=== PATIENT | female | born 1950 | race Caucasian/White ===

== ENCOUNTER 2019-02-22 12:13 | Day surgery (SDC) | payer MEDICARE ==
[~2019-02-22] VITALS: Ht 165.1 cm; Wt 55.7 kg
[~2019-02-22 12:13] MED LIST: AMLO5 PO; Benicar40 MG PO; FURO40 PO; K-Dur20 MEQ PO; LO-DOSE ASPIRIN81 MG PO; METO50ER PO; SIMV40 PO
--- NOTE | 2019-02-22 17:11 | NUR ---
02/22/19 1711 Amairani Brown TO CAR W/SBA X1 NAE WELL. DC INSTRUCTIONS GIVEN AND NAE WATER PRIOR TO DC HOME
== END 2019-02-22 16:45 | disposition home or self-care (01) ==
LOC: ORSCSDS 12:13
PROVIDERS: Student in an Organized Health Care Education/Training Program
PROC: 0D758ZZ Dilation of Esophagus, Via Natural or Artificial Opening Endoscopic (ICD-10-PCS; principal; 2019-02-22 13:45)
PROC: 0DB58ZX Excision of Esophagus, Via Natural or Artificial Opening Endoscopic, Diagnostic (ICD-10-PCS; principal; 2019-02-22 13:45)
PROC: 0DB68ZX Excision of Stomach, Via Natural or Artificial Opening Endoscopic, Diagnostic (ICD-10-PCS; principal; 2019-02-22 13:45)
PROC: 0DB98ZX Excision of Duodenum, Via Natural or Artificial Opening Endoscopic, Diagnostic (ICD-10-PCS; principal; 2019-02-22 13:45)
DX: R13.10 Dysphagia, unspecified (principal); K29.80 Duodenitis without bleeding; Q39.4 Esophageal web; K29.70 Gastritis, unspecified, without bleeding; I10 Essential (primary) hypertension; F17.210 Nicotine dependence, cigarettes, uncomplicated; E78.00 Pure hypercholesterolemia, unspecified; Z79.82 Long term (current) use of aspirin; Z79.899 Other long term (current) drug therapy
CPT/HCPCS: 88305; 88342; C1726; J2704; J7120

== ENCOUNTER 2019-04-12 06:07 | Inpatient (IN) | payer MEDICARE ==
[~2019-04-12] VITALS: Ht 165.1 cm; Wt 53.4 kg
[2019-04-12 06:48] LABS: BASOPHILS ABSOLUTE AUTO 0.03 K/mm3 (0.00-0.23); BASOPHILS PERCENT AUTO 0 % (0-2); EOSINOPHILS ABSOLUTE AUTO 0.09 K/mm3 (0.00-0.68); EOSINOPHILS PERCENT AUTO 1 % (0-6); Hematocrit 41.3 % (33.0-51.0); Hemoglobin 13.7 g/dL (11.5-16.0); IMMATURE GRAN ABSOLUTE AUTO 0.02 K/mm3 (0.00-0.10); IMMATURE GRAN PERCENT AUTO 0 % (0-1); LYMPHOCYTES ABSOLUTE AUTO 1.14 K/mm3 (0.84-5.20); LYMPHOCYTES PERCENT AUTO 17 % (21-46); MONOCYTES ABSOLUTE AUTO 0.57 K/mm3 (0.16-1.47); MONOCYTES PERCENT AUTO 8 % (4-13); Mean Corpuscular HGB 31.9 pg (26.0-34.0); Mean Corpuscular HGB Conc 33.2 g/dL (31.5-36.5); Mean Corpuscular Volume 96 fL (80-100); Mean Platelet Volume 10.1 fL (9.1-12.4); NEUTROPHILS ABSOLUTE AUTO 5.02 K/mm3 (1.96-9.15); NEUTROPHILS PERCENT AUTO 73 % (41-73); Platelet Count 224 K/mm3 (150-400); RDW Coefficient Variation 16.6 % (11.7-14.2); RDW Standard Deviation 58.7 fL (35.1-46.3); White Blood Cell Count 6.87 K/mm3 (4.00-11.30)
[2019-04-12] MEDS ORDERED: SPIR25 PO (06:48)
[2019-04-12 07:07] LABS: Alanine Aminotransfer (ALT/SGP 14 U/L (12-78); Albumin, Blood 3.3 g/dL (3.4-5.0); Albumin/Globulin Ratio 0.9 (0.8-1.8); Alk Phos 75 U/L (50-136); Anion Gap 8 mmol/L (6-16); Aspartate Aminotrans (AST/SGOT 19 U/L (12-37); Bilirubin, Total 0.7 mg/dL (0.1-1.0); Blood Urea Nitrogen 7 mg/dL (8-24); Bun/Creatinine Ratio 10.5 (12.0-20.0); CO2, Blood 26 mmol/L (21-32); Calcium, Blood 8.8 mg/dL (8.5-10.1); Chloride, Blood 107 mmol/L (98-108); Creatinine, Blood 0.66 mg/dL (0.40-1.00); Globulin, Blood 3.5 g/dL (2.2-4.0); Glomerular Filtration Rate >60 (60-); Glucose, Blood 107 mg/dL (70-99); Potassium, Blood 3.3 mmol/L (3.5-5.5); Sodium, Blood 141 mmol/L (136-145); Total Protein, Blood 6.8 g/dL (6.4-8.2); Troponin I 0.041 ng/mL (0.000-0.040)
[2019-04-12] MEDS ORDERED: XARELTO20 MG PO (11:46)
[2019-04-12 12:09] LABS: International Normalized Ratio 0.98; Prothrombin Time Results 10.4 Sec (9.7-11.5)
--- NOTE | 2019-04-12 18:41 | NUR ---
PT SETTLED IN ROOM, FAMILY HAS CONTINUED AT BEDSIDE SINCE ARRIVAL. HEPARIN CONTINUES TO RUN AT 13 U/KG/HR, 14 ML/HR. PT ABLE TO GET UP INDEPENDENTLY TO BATHROOM WITH SBA. DR ORDERED A CT SCAN OF CHEST FOR LUNG MASS, PT AND FAMILY ARE UNAWARE OF THE REASONING FOR THE CT. WILL PASS THAT INFORMATION IN REPORT AND LET DR EXPLAIN AFTER TEST COMPLETE. CT CONTACTED BY THIS RN, CONTRAST WILL BE SENT TO THE UNIT AND SCAN WILL BE DONE AROUND 0600. WILL CONTINUE TO MONITOR AND GIVE REPORT TO NOC RN.
--- NOTE | 2019-04-12 21:22 | NUR ---
CARE ASSUMED/ TROPONIN/ DR. BRUSH COMMUNICATION REPORT RECEIVED, CARE ASSUMED FROM SADI, RN AT 1900. PT UPDATED ON PLAN OF CARE FOR SHIFT AND AGREEABLE. HEPARIN GTT INFUSING. NOTIFIED BY LAB OF CRITICAAL TROPONIN. VSS, DENIES PAIN, TELEMETRY UNCHANGED. SPOKE WITH DR. BRUSH REGARDING TROPONIN. CONFIRMED DISCONTINUATION OF HEPARIN. HEPARIN STOPPED. CONFIRMED PLAN FOR CT WITH ORAL CONTRAST AT 0600 AND ANGIOGRAM MID AFTERNOON TOMORROW. DR. BRUSH REQUESTING STAT READ ON CT RESULTS AFTER COMPLETED. SPOKE WITH SHAHANA IN RADIOLOGY WHO STATES HE WILL HAVE IT SENT TO [facility] FOR READING AFTER COMPLETION.
[2019-04-13 03:55] LABS: BASOPHILS ABSOLUTE AUTO 0.03 K/mm3 (0.00-0.23); BASOPHILS PERCENT AUTO 1 % (0-2); EOSINOPHILS ABSOLUTE AUTO 0.06 K/mm3 (0.00-0.68); EOSINOPHILS PERCENT AUTO 1 % (0-6); Hematocrit 36.6 % (33.0-51.0); Hemoglobin 12.4 g/dL (11.5-16.0); IMMATURE GRAN ABSOLUTE AUTO 0.01 K/mm3 (0.00-0.10); IMMATURE GRAN PERCENT AUTO 0 % (0-1); LYMPHOCYTES PERCENT AUTO 21 % (21-46); MONOCYTES ABSOLUTE AUTO 0.54 K/mm3 (0.16-1.47); MONOCYTES PERCENT AUTO 10 % (4-13); Mean Corpuscular HGB 32.7 pg (26.0-34.0); Mean Corpuscular HGB Conc 33.9 g/dL (31.5-36.5); Mean Corpuscular Volume 97 fL (80-100); Mean Platelet Volume 10.5 fL (9.1-12.4); NEUTROPHILS ABSOLUTE AUTO 3.84 K/mm3 (1.96-9.15); NEUTROPHILS PERCENT AUTO 68 % (41-73); Platelet Count 179 K/mm3 (150-400); RDW Coefficient Variation 16.5 % (11.7-14.2); RDW Standard Deviation 58.4 fL (35.1-46.3); Red Blood Cell Count 3.79 M/mm3 (3.80-5.20); White Blood Cell Count 5.68 K/mm3 (4.00-11.30)
[2019-04-13 04:19] LABS: Alanine Aminotransfer (ALT/SGP 16 U/L (12-78); Albumin, Blood 2.8 g/dL (3.4-5.0); Alk Phos 60 U/L (50-136); Anion Gap 4 mmol/L (6-16); Aspartate Aminotrans (AST/SGOT 34 U/L (12-37); Bilirubin, Total 0.7 mg/dL (0.1-1.0); Blood Urea Nitrogen 8 mg/dL (8-24); Bun/Creatinine Ratio 10.9 (12.0-20.0); CO2, Blood 28 mmol/L (21-32); Calcium, Blood 8.5 mg/dL (8.5-10.1); Chloride, Blood 108 mmol/L (98-108); Creatinine, Blood 0.73 mg/dL (0.40-1.00); Free Thyroxine 1.34 ng/dL (0.70-1.60); Globulin, Blood 2.8 g/dL (2.2-4.0); Glomerular Filtration Rate >60 (60-); Glucose, Blood 83 mg/dL (70-99); Magnesium, Blood 2.1 mg/dL (1.6-2.4); Potassium, Blood 3.2 mmol/L (3.5-5.5); Sodium, Blood 140 mmol/L (136-145); Total Protein, Blood 5.6 g/dL (6.4-8.2)
--- NOTE | 2019-04-13 06:49 | NUR ---
SUMMARY VITALS STABLE THROUGHOUT NIGHT. ASSESSMENTS UNCHANGED. PT CONTINUES TO DENY CHEST PAIN. PT TO CT SCAN THIS MORNING. SPOKE WITH CARLOS IN RADIOLOGY WHO EXPLAINS IN HOUSE RADIOLOGIST WILL BE IN AT 0730 TO READ RESULTS. PT HAS CALLED APPROPRIATELY FOR NEEDS AND CONTINUED TO BE INDEPENDENT IN ROOM.
--- NOTE | 2019-04-13 12:38 | NUR ---
Advance Directive education/spiritual care visit conducted. Upon receiving an advance directive and spiritual care referral, I visited patient. Her two sons were bedside. Patient has not learned the outcome of her CT scan and is waiting for an angiogram (according to patient), when I visit. I ask patient her level of interest in an advance directive. Patient expresses a need in that area. I go over the sections of the advance directive booklet, with booklet in hand. I discuss the importance and the process and leave booklet with patient to complete. I also give room in the conversation to discuss emotional and spiritual needs and no movement with patient or sons in that direction occurs. I will remain available to patient and family.
--- NOTE | 2019-04-13 13:05 | NUR ---
[facility] RN'S AT BEDSIDE TO PREP PATIENT AND TAKE TO [facility] PASSER FOR PROCEDURE.
--- NOTE | 2019-04-13 15:21 | NUR ---
PT RETURNED FROM ADJUNCT HISTORY INSTRUCTOR, RIGHT RADIAL SITE WITH TR BAND IN PLACE. PT IS ALERT AND ORIENTED ABLE TO EXPRESS NEEDS APPROPRIATELY. WILL CONTINUE TO MONITOR AND ASSESS. FAMILY AT BEDSIDE. DR. HUSTON IN TO DISCUSS POSSIBLE BIOPSY WITH PATIENT AND FAMILY. WILL REMAIN AVALAIBLE FOR QUESTIONS.
--- NOTE | 2019-04-13 19:33 | NUR ---
PT RECOVERING FROM DIAL MOUNTER, RIGHT RADIAL SITE HAD BEEN STABLE AND VSS THROUGHOUT RECOVERY. BEGAN REMOVING AIR FROM TR BAND. REMOVED 2 CC AIR WAITED APPROXIMATELY 10 MIN, NO CHANGES IN SITE, REMOVED 2 ADDITIONAL CC AIR BEFORE CHANGE OF SHIFT. DURING REPORT BENNETT THOMPSON REPORTS SOME BLEEDING FROM TR BAND/RR SITE. RE-INFLATED 4 CC AIR THAT HAD BEEN REMOVED. CLEANED UP SITE AND WILL HAVE NOC SADAF LOYA BEGIN REMOVING AIR AFTER AN HOUR IF APPROPRIATE. REPORT GIVEN TO SADAF LOYA.
--- NOTE | 2019-04-13 20:00 | NUR ---
PT SITTING UP IN BED, WATCHING TV. PLEASANT & DENIES DISCOMFORT. R RAD ACCESS SITE CONT W TR BAND IN PLACE, REQUIRED REINFLATION DURING SHIFT CHANGE BEDSIDE REPORT WHEN OOZING NOTED. SITE IS SOFT, NO HEATOMA WAS NOTED. PT IS ABLE TO AMB TO BR WO DIFFICULTY, CALLS FOR ASSIST BEFORE UP TO ASSIST W LINENS & LINES GIVEN TR SITE. WILL CONT TO MONITOR.
--- NOTE | 2019-04-14 | NUR ---
R RADIAL SITE CONT WO BLEEDING, BAND IS FULLY DEFLATED, BUT BAND HAS NOT BEEN REMOVED YET. ARM BOARD CONT IN PLACE & PT UNDERSTANDS NO FLEXION OR PRESSURE W R HAND. PT UP TO BR TO VOID, RHYTHM CHANGE NOTED, AFIB W RATE HIGH 170 BRIEFLY WHILE VOIDING, THEN GEN STAYING UNDER 100. PT STATES SHE WONDERED IF SHE WAS HAVING AFIB. WILL CALL DR CHADWICK.
--- NOTE | 2019-04-14 02:00 | NUR ---
ORDERS REC'D FOR AMIODARONE BOLUS & GTT PER DR CHADWICK. PT DENIES ANY DISTRESS.
--- NOTE | 2019-04-14 05:27 | NUR ---
SHIFT SUMMARY PT SLEEPING IN ROOM COMFORTABLY AT THIS TIME. REPORT TAKEN FROM VINCENZO TALAVERA AT APROX 0330 THIS AM. PT HAS BEEN STARTED ON AMIDARONE D/T MAINTAINED INCREASED HR IN THE 150'S. PER RN PT HAD BEEN NSR T/O DAY AND CONVERTED TO AFIB/AFLUTTER RHYTHYM LATE IN THE EVENING. BOLUS DOSE GIVEN PER EMAR, AND GTT STARTED. APROX 5 MIN AFTER GTT STARTED PT CONVERTED BACK TO NSR PER TELE. GTT CONTINUED. PT VSS AT THIS TIME. PT TOLERATING WELL. RESP EVEN UNLBAORED ON RA W/ SATS >92%. TR BAND ON R WRIST WAS COMPLETELY DELFATED AND BAND REMOVED. SIUTE APPEARS WNL, NO HEMATOMAS NOTED, AND ARM BOARD BACK IN PLACE. PT DENIES OTHER NEEDS. USES CALL LIGHT APPROPRIATELY. CALL LIGHT IN REACH.
[2019-04-14 09:18] LABS: BASOPHILS ABSOLUTE AUTO 0.01 K/mm3 (0.00-0.23); BASOPHILS PERCENT AUTO 0 % (0-2); EOSINOPHILS ABSOLUTE AUTO 0.05 K/mm3 (0.00-0.68); EOSINOPHILS PERCENT AUTO 1 % (0-6); Hematocrit 38.1 % (33.0-51.0); Hemoglobin 12.7 g/dL (11.5-16.0); IMMATURE GRAN ABSOLUTE AUTO 0.02 K/mm3 (0.00-0.10); IMMATURE GRAN PERCENT AUTO 0 % (0-1); LYMPHOCYTES ABSOLUTE AUTO 0.56 K/mm3 (0.84-5.20); LYMPHOCYTES PERCENT AUTO 9 % (21-46); MONOCYTES ABSOLUTE AUTO 0.55 K/mm3 (0.16-1.47); MONOCYTES PERCENT AUTO 9 % (4-13); Mean Corpuscular HGB 31.9 pg (26.0-34.0); Mean Corpuscular HGB Conc 33.3 g/dL (31.5-36.5); Mean Corpuscular Volume 96 fL (80-100); Mean Platelet Volume 10.3 fL (9.1-12.4); NEUTROPHILS ABSOLUTE AUTO 4.77 K/mm3 (1.96-9.15); NEUTROPHILS PERCENT AUTO 80 % (41-73); Platelet Count 191 K/mm3 (150-400); RDW Coefficient Variation 16.5 % (11.7-14.2); RDW Standard Deviation 57.9 fL (35.1-46.3); Red Blood Cell Count 3.98 M/mm3 (3.80-5.20); White Blood Cell Count 5.96 K/mm3 (4.00-11.30)
[2019-04-14 09:51] LABS: Anion Gap 5 mmol/L (6-16); Blood Urea Nitrogen 4 mg/dL (8-24); Bun/Creatinine Ratio 6.4 (12.0-20.0); CO2, Blood 24 mmol/L (21-32); Calcium, Blood 8.7 mg/dL (8.5-10.1); Chloride, Blood 109 mmol/L (98-108); Creatinine, Blood 0.63 mg/dL (0.40-1.00); Glomerular Filtration Rate >60 (60-); Glucose, Blood 127 mg/dL (70-99); Potassium, Blood 3.3 mmol/L (3.5-5.5); Sodium, Blood 138 mmol/L (136-145)
--- NOTE | 2019-04-14 11:17 | NUR ---
Patient is pleasant and more talkative today. Patient openly shares about her family (1 of 17 children), her taylor (Yazidi) and her medical history. 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 I listen empathically and provide companionship and prayer. Patient responds well and shows signs of an elevated mood.
--- NOTE | 2019-04-14 19:09 | NUR ---
END OF SHIFT; PT REMAINS ON AMNIODARONE DRIP AT 16.7 WILL FINISHE APPROX 0330 IN THE AM. HER TR BAND SITE IS CLEAN AND DRY NO BLEEDING NOTED. CMS INTACT. ARM BOARD REMAINS IN PLACE. PT ASKS REPEATEDLY TO GO OUTSIDE AND SMOKE TODAY. VERBALIZED UNDERSTANDING THAT PT'S IN PCU ARE DISCOURAGED FROM GOING OUT SINCE TELE MONITOR WILL NOT REACH THE OUTSIDE SMOKING AREA. PT AMBULATES IN ROOM WITHOUT ASSIST. STATES SHE IS LOOKING FORWARD TO GOING HOME WITH HER SPOUSE IN AM. PT IS IN NSR AT THIS TIME. DENIES ANY CP OR PRESSURE. REPORT TO MILTON TALAVERA NOC SHIFT RN.
--- NOTE | 2019-04-14 21:40 | NUR ---
ASSUMED CARE OF PATIENT AT APPROXIMATELY 1910 FROM DIANNA Haskins RN. PATIENT ALERT AND ORIENTED X4; INDEPENDENT IN ROOM. PATIENT DENIES PAIN, NUMBNESS, TINGLING, DIZZINESS AND NAUSEA. PATIENT REPORTS HE IS NERVOUSR ABOUT SWALLOWING PILLS BECAUSE SHE HAD A SWALLOW TEST DONE AND THEY GO DOWN THE WRONG SIDE SOMETIMES. PM PILLS CRUSHED AND GIVEN IN [place]AN[place]A PUDDING PER REQUEST. PATIENT REPORTS SHE HAS BEEN LETTING HER PILLS SOAK IN WATER FOR ABOUT THREE HOURS THEN TAKING THEM. SHE REPORTS SHE CAN TAKE SMALL PILLS IN PUDDING. NO S/S OF ASPIRATION WHEN PATIENT TOOK PM PILLS. AMIODARONE GTT PER ORDER UNTIL BAG COMPLETE. OFFGOING RN REPORTS D5 DISCONTINUED. NSR ON TELE; OXYGEN SATURATION ABOUT 90% ON ROOM AIR. RIGHT RADIAL SITE WNL; SOME DRIED BLOOD NOTED; ARMBOARD IN PLACE. PATIENT CURRENTLY RESTING IN BED; CALL LIGHTIN REACH; BED IN LOWEST POSISTION; WILL CONTINUE TO MONITOR AND ASSESS UNTIL END OF SHIFT.
--- NOTE | 2019-04-15 05:06 | NUR ---
PATIENT SLEPT ABOUT SIX HOURS; NO ACUTE CHANGES TO REPORT; PIV S/L. VSS. NSR ON TELE. WILL CONTINUE TO MONITOR AND ASSESS UNTIL END OF SHIFT.
[2019-04-15 08:35] LABS: Anion Gap 5 mmol/L (6-16); Blood Urea Nitrogen 4 mg/dL (8-24); Bun/Creatinine Ratio 5.5 (12.0-20.0); CO2, Blood 24 mmol/L (21-32); Calcium, Blood 8.8 mg/dL (8.5-10.1); Chloride, Blood 111 mmol/L (98-108); Creatinine, Blood 0.73 mg/dL (0.40-1.00); Glomerular Filtration Rate >60 (60-); Glucose, Blood 90 mg/dL (70-99); Potassium, Blood 3.9 mmol/L (3.5-5.5); Sodium, Blood 140 mmol/L (136-145)
--- NOTE | 2019-04-15 08:48 | NUR ---
pt laying in bed awake, a/ox3 ,pleasant and cooperative with care, follows commands well, denies any complaints of pain, lungs are clear in upperfields, dim in bases, resp even and unlabord, occ harsh cough noted, hrr, tele in place, running sr per monitor, see strip, no edema noted, ppp+1, cap refill <3sec, vs stable, low grade temp of 99.0, iv site is clear and patent, s.l. at this time, btx4, abd flat soft nontender, voids without diff, skin has trband site, with dressing in place, is clear, bernard valdivia, call light in in reach, spoke to her about smoking cessation, has no intention of stopping, says I know it will kill me.
--- NOTE | 2019-04-15 10:03 | NUR ---
pt has been discharged to home, will start her on plavix this am. call light in reach.
[2019-04-15] MEDS ORDERED: Klor-Con 1010 MEQ PO (10:06)
[2019-04-15] MEDS ORDERED: Aspirin EC81 MG PO (10:07)
[2019-04-15] MEDS ORDERED: ATORVASTATIN CA80 MG PO (10:07)
[2019-04-15] MEDS ORDERED: CLOP75 PO (10:08)
[2019-04-15] MEDS ORDERED: NICO21TP TOP (10:08)
--- NOTE | 2019-04-15 10:10 | NUR ---
Patient tells me that she is in the discharge process and is excited to go home. Patient is expresses appreciation for the excellent care she has received from the PCU staff and from the spiritual care department.
--- NOTE | 2019-04-15 10:47 | NUR ---
pt has been discharged to home, went over instructions with her, she verbalized understanding, went over need to stop plavix on a certain date prior to biopsy, she understands, iv removed intact, will leave via wheelchair with dietary services director in attendence with all her belongings.
== END 2019-04-15 10:50 | disposition home or self-care (01) | DRG 250 ==
LOC: ER 06:07 → ERHOLD 06:08 → PCU 06:08
PROVIDERS: Emergency Medicine; ADMIT Internal Medicine
PROC: 02703ZZ Dilation of Coronary Artery, One Artery, Percutaneous Approach (ICD-10-PCS; principal; 2019-04-13)
PROC: B2111ZZ Fluoroscopy of Multiple Coronary Arteries using Low Osmolar Contrast (ICD-10-PCS; 2019-04-13)
DX: T82.855A Stenosis of coronary artery stent, initial encounter (principal); I21.4 Non-ST elevation (NSTEMI) myocardial infarction; Q39.4 Esophageal web; Z79.82 Long term (current) use of aspirin; F17.200 Nicotine dependence, unspecified, uncomplicated; Z95.5 Presence of coronary angioplasty implant and graft; I48.0 Paroxysmal atrial fibrillation; J44.9 Chronic obstructive pulmonary disease, unspecified; E78.5 Hyperlipidemia, unspecified; I10 Essential (primary) hypertension; E87.6 Hypokalemia; R91.8 Other nonspecific abnormal finding of lung field
CPT/HCPCS: 36415; 71046; 71260; 74177; 80048; 80053; 83735; 83880; 84439; 84443; 84484; 85025; 85347; 85610; 85730; 86850; 86900; 86901; 92920; 93005; 93010; 93306; 93458; 96365; 99152; 99153; 99285-25; C1725; C1769; C1887; G0378; J0282; J1644; J2250; J3010; J7030; J7042; J7060; Q9967